=== PATIENT | female | born 2000 | race Caucasian/White ===

== ENCOUNTER 2022-04-06 09:38 | Outpatient (CLI) | payer MEDICAID, SELFPAY ==
--- NOTE | 2022-04-06 09:45 | CRLHL7_ITS ---
For Patients: As a result of the Century Cures Act, medical imaging exams and procedure reports are released immediately into your electronic medical record. You may view this report before your referring provider. If you have questions, please contact your health care provider. INDICATION: First trimester scan, establish dates. COMPARISON: None. TECHNIQUE: Real-time kowalski-scale imaging of the pelvis was performed. FINDINGS: Sonographic imaging demonstrates a single living intrauterine gestation. The embryo demonstrates a regular cardiac rate measuring 143 beats per minute. The embryo`s crown-rump length measurement of 1.0 cm corresponds to a gestational age of 7 weeks 1 day with a sonographic due date of 11/22/2022. There is a normal-appearing yolk sac. There are no gross abnormalities noted within the embryo at this early state of development. The gestational sac has a normal appearance. There is no evidence of a perigestational hemorrhage. The amount of fluid within the sac appears appropriate for gestational age. The cervix is closed. The myometrium appears normal. The ovaries are of normal size. Corpus luteal cyst right ovary. There are no suspicious fluid collections noted in the cul-de-sac. IMPRESSION: Normal first trimester OB ultrasound exam. Gestational age calculated at 7 weeks 1 day with a sonographic due date of 11/22/2022. Dictated by Facundo Mckeon MD @ 04/06/2022 11:07:17 AM (Electronically Signed)
== END 2022-04-06 09:39 | disposition home or self-care (01) ==
LOC: US 09:39
PROVIDERS: Visit Provider Advanced Practice Midwife
DX: Z34.91 Encounter for supervision of normal pregnancy, unspecified, first trimester (principal); Z3A.01 Less than 8 weeks gestation of pregnancy
CPT/HCPCS: 76817; 86592; 86703; 86762; 86787; 86803; 86850; 86900; 86901; 87086; 87340; 87491; 87591

== ENCOUNTER 2022-05-04 09:01 | Outpatient (CLI) | payer MEDICAID, SELFPAY ==
[2022-05-04 11:31] LABS: Alanine Aminotransferase* 17 U/L (4-35); Aspartate Amino Transferase* 17 U/L (12-35); Blood Urea Nitrogen* 7 mg/dL (5-24); Creatinine* 0.5 mg/dL (0.5-1.5); Estimated Glomerular Filt Rate 135 ml/min
[2022-05-04 11:33] LABS: Total Protein Urine 5 mg/dL
[2022-05-04 11:34] LABS: Creatinine Urine 266.9 mg/dL
== END 2022-05-04 09:02 | disposition home or self-care (01) ==
PROVIDERS: Visit Provider Advanced Practice Midwife
DX: Z34.91 Encounter for supervision of normal pregnancy, unspecified, first trimester (principal); Z87.59 Personal history of other complications of pregnancy, childbirth and the puerperium; Z3A.11 11 weeks gestation of pregnancy
CPT/HCPCS: 82565; 82570; 84156; 84450; 84460; 84520

== ENCOUNTER 2022-07-02 09:15 | Outpatient (CLI) | payer OTHER, MEDICAID, SELFPAY ==
--- NOTE | 2022-07-02 09:15 | CRLHL7_ITS ---
For Patients: As a result of the Century Cures Act, medical imaging exams and procedure reports are released immediately into your electronic medical record. You may view this report before your referring provider. If you have questions, please contact your health care provider. INDICATION: Evaluate anatomy. COMPARISON: 04/06/2022 TECHNIQUE: Real time kowalski scale imaging of the fetus was performed as well as color Doppler analysis of the umbilical vessels. FINDINGS: Sonographic imaging demonstrates a single living intrauterine gestation. Fetus demonstrates a regular cardiac rate of 157 beats per minute. Fetus has a vertex position. The placenta lies anteriorly without evidence of placenta previa. The edge of the placenta is located 6.2 cm from the internal cervical os. Amniotic fluid volume appears normal. Single deepest vertical pocket: 5.3 cm. The cervix is closed and measures 4.1 cm in length. The composite ultrasound gestational age is calculated at 20 weeks 0 days with an estimated sonographic due date of 11/19/2022. The estimated weight is 323 grams which lies at the 68th %. The following biometric measurements were obtained: Biparietal diameter: 4.7 cm/20 weeks 1 day 77th% Head circumference: 17.6 cm/20 weeks 1 day 69th% Abdominal circumference: 15.1 cm/20 weeks 3 days 71st% Femur length: 3.0 cm/19 weeks 3 days 37th% The HC/AC ratio measures: 1.16 range (1.08-1.25) On anatomic survey, there is a normal appearance of the cerebral ventricles, cavum septi pellucidi, cisterna magna and cerebellum. The nose, lips, and facial profile appear normal. The cervical, thoracic and lumbar spine are well visualized and appear normal. There is a normal four-chamber heart view and the left and right ventricular outflow tracts appear normal. The diaphragm and stomach appear normal. The kidneys and bladder also appear normal. There is a normal three-vessel cord and cord insertion site. The four extremities appear normal. IMPRESSION: Normal OB ultrasound exam with concordance of clinical and sonographic dating. No intrinsic abnormalities noted on anatomic survey. Dictated by Facundo Mckeon MD @ 07/02/2022 2:31:21 PM (Electronically Signed)
== END 2022-07-02 09:16 | disposition home or self-care (01) ==
LOC: US 09:16
PROVIDERS: Visit Provider Advanced Practice Midwife
DX: Z34.92 Encounter for supervision of normal pregnancy, unspecified, second trimester (principal); Z3A.20 20 weeks gestation of pregnancy
CPT/HCPCS: 76805

== ENCOUNTER 2022-08-30 08:40 | Outpatient (CLI) | payer MEDICAID, SELFPAY | END 2022-08-30 08:41 | disposition home or self-care (01) | PROVIDERS: Visit Provider Advanced Practice Midwife | DX: Z34.93 Encounter for supervision of normal pregnancy, unspecified, third trimester (principal); Z3A.28 28 weeks gestation of pregnancy | CPT/HCPCS: 86592 ==

== ENCOUNTER 2022-10-12 11:33 | Outpatient (CLI) | payer MEDICAID, SELFPAY | END 2022-10-12 11:34 | disposition home or self-care (01) | LOC: NFLDREF 11:35 | PROVIDERS: Visit Provider Advanced Practice Midwife | DX: Z34.93 Encounter for supervision of normal pregnancy, unspecified, third trimester (principal); Z3A.34 34 weeks gestation of pregnancy | CPT/HCPCS: 87086 ==

== ENCOUNTER 2023-08-31 15:04 | Outpatient (CLI) | payer MEDICAID, SELFPAY ==
[2023-08-31 20:41] LABS: Chlamydia DNA Amplified* NOT DETECTED (No Detected); GC DNA Amplified* NOT DETECTED (No Detected)
== END 2023-08-31 15:05 | disposition home or self-care (01) ==
PROVIDERS: Visit Provider Registered Nurse
DX: N92.6 Irregular menstruation, unspecified (principal)
CPT/HCPCS: 84443; 87491; 87591

== ENCOUNTER 2023-09-09 15:43 | Outpatient (CLI) | payer MEDICAID, SELFPAY ==
--- NOTE | 2023-09-09 16:00 | US_ITS ---
Patient: ROMI AIKEN Facility:?[facility] Patient ID:?[id number] Site Patient ID:?[id number]. Site :?[id number] Study:?US-Pelvis PELVIS TA & TV-09/09/2023 4:36:10 PM Ordering Physician:?CHRISTINA ACOSTA CNP Final Report: INDICATION: Irregular and frequent menstruation, unspecified. TECHNIQUE: Transabdominal and transvaginal pelvic ultrasound with grayscale and color Doppler images. FINDINGS: Uterus is anteverted and measures 8.3 x 3.1 x 5.4 cm. There is an IUD that appears appropriate positioned within the uterus. Endometrial stripe thickness 2 mm in the lower uterine segment and obscured by the IUD in the body and fundus. Both ovaries appear normal at normal color flow. No adnexal mass or free fluid. IMPRESSION: IUD appears appropriately positioned. Dictated by Edson Keith MD @ 09/13/2023 8:26:27 AM Signed by:?Edson Keith MD @09/13/2023 8:26:27 AM (Electronic Signature)
== END 2023-09-09 15:44 | disposition home or self-care (01) ==
LOC: US 15:43
PROVIDERS: Visit Provider Registered Nurse
DX: N92.6 Irregular menstruation, unspecified (principal)
CPT/HCPCS: 76830; 76856